=== PATIENT | male | born 1995 | race Two or more races ===

== ENCOUNTER 2023-01-21 16:19 | Emergency (ER) | payer OTHER ==
[~2023-01-21] VITALS: Ht 193 cm; Wt 92.7 kg
[2023-01-21 17:16] VITALS: BP 113/69
[2023-01-21] MEDS ORDERED: ACETAMINOPHEN 500 MG TAB PO ONE (18:00)
[2023-01-21] MEDS ORDERED: CYCL-839 PO (19:37)
[2023-01-21] MEDS ORDERED: IBUP1TAB5 PO (19:37)
== END 2023-01-21 20:40 | disposition home or self-care (01) ==
LOC: ER 16:19
DX: S06.899A Other specified intracranial injury with loss of consciousness of unspecified duration, initial encounter (principal); S83.92XA Sprain of unspecified site of left knee, initial encounter; S83.91XA Sprain of unspecified site of right knee, initial encounter; S39.012A Strain of muscle, fascia and tendon of lower back, initial encounter; M25.572 Pain in left ankle and joints of left foot; V43.62XA Car passenger injured in collision with other type car in traffic accident, initial encounter; Y93.89 Activity, other specified; Y92.89 Other specified places as the place of occurrence of the external cause; Y99.8 Other external cause status
CPT/HCPCS: 70450; 71250; 72070; 72100; 72125; 73080; 73562; 73610; 74176